=== PATIENT | male | born 1935 | race Caucasian/White ===

== ENCOUNTER → 2016-11-15 | Outpatient (CLI) | payer MEDICARE, BC ==
[~2016-11-15] MED LIST: /ESOM40CA PO; /WARF25TA PO; /WARF5TA PO; ALTA5CAP PO; ASPI81TA83 PO; BACITAB3 PO; BYST2.5T2 PO; BYSTOLIC PO; CILOXAN; CIPR-250 PO; COUM1TAB17 PO; CRES40TA PO; DORZ2SOL5 OU; DULO1CAP3 PO; FINA5TAB2 PO; FLOM5CAP PO; GLUC500T PO; HYDR25TA6 PO; INSUDET SC; METF500T PO; MULTIVIT PO; NEXI40CA PO; PROCTOFOAM; SULF50TA PO; VITA500T3 PO; VITMTA PO
[2016-11-15 14:06] LABS: CREATININE FOR GFR 1.98 MG/DL (0.70-1.30); GLOMERULAR FILTRATION RATE 34.7 (>35); MEAN CORPUSCULAR HEMOGLOBIN 35.2 pg (27.0-33.0); MEAN CORPUSCULAR HGB CONC 33.8 g/dl (32.0-36.5); MEAN CORPUSCULAR VOLUME 104.3 fl (80.0-96.0); RED CELL DISTRIBUTION WIDTH 13.4 % (11.5-14.5); WHITE BLOOD COUNT 4.4 K/mm3 (4.0-10.0)
== END ==
LOC: M SMT 10:55
PROVIDERS: ATTEND Nurse Practitioner Women's Health
DX: N20.0 Calculus of kidney (principal)
CPT/HCPCS: 36415; 80048; 81001; 85027; 87086; G0463

== ENCOUNTER → 2016-11-30 | Outpatient (CLI) | payer MEDICARE, BC ==
--- NOTE | 2016-11-30 12:10 | REP ---
Clinical: Nephrolithiasis. Comparison: 06/17/2016. Findings: Evaluation of the urinary tract system demonstrates mild chronic-appearing symmetric perinephric stranding. The right kidney includes a 7.5 cm posterior mid pole cyst along with 15 mm calculus in the renal pelvis and 10 mm and 2 mm calculi within the lower pole and upper pole calyces. There is no evidence for hydroureteronephrosis and a stable 11 mm calculus in the right kirti pelvis is unchanged compared to prior examination and may reflect adjacent phleboliths or nonobstructing distal ureteral stone (images 107 - 111). The left kidney includes 2.2 cm mid pole cyst and is without nephrolithiasis or hydroureteronephrosis. Liver, spleen, pancreas, and bilateral adrenal glands normal. The patient is status post cholecystectomy. The enteric system demonstrates diffuse diverticulosis without acute diverticulitis. Normal terminal ileum and appendix identified in the right lower quadrant. Bladder and prostate gland are incompletely evaluated due to metallic streak artifact from left hip prosthesis. No ascites. No free air. No significant adenopathy. Atherosclerotic changes of the aorta noted without aneurysm. Musculoskeletal structures demonstrate degenerative changes. Lung bases demonstrate cardiomegaly and chronic fibroatelectatic changes. Impression: 1. Right-sided calculi as described above with possible nonobstructing distal right ureteral stone versus phlebolith unchanged compared to 06/17/2016. Bilateral renal cysts. 2. Diverticulosis without acute diverticulitis. Signed by Orion Amezcua MD 11/30/2016 12:02 P
== END ==
LOC: M RAD 11:09
PROVIDERS: ATTEND Nurse Practitioner Women's Health
DX: N20.0 Calculus of kidney (principal); K57.30 Diverticulosis of large intestine without perforation or abscess without bleeding

== ENCOUNTER → 2017-03-17 | Outpatient (CLI) | payer MEDICARE, BC ==
[~2017-03-17] MED LIST changes: +BACITAB PO; -BACITAB3 PO; -METF500T PO; +METF500T13 PO
[2017-03-17 13:01] LABS: MEAN CORPUSCULAR HGB CONC 33.5 g/dl (32.0-36.5); MEAN CORPUSCULAR VOLUME 98.4 fl (80.0-96.0); WHITE BLOOD COUNT 5.6 K/mm3 (4.0-10.0)
[2017-03-17 14:02] LABS: CALCIUM LEVEL 8.2 MG/DL (8.8-10.2); CREATININE FOR GFR 1.9 MG/DL (0.70-1.30); GLOMERULAR FILTRATION RATE 36.4 (>35); POTASSIUM SERUM 4.5 MEQ/L (3.5-5.1)
== END ==
LOC: M SMT 10:39
PROVIDERS: ATTEND Nurse Practitioner Women's Health
DX: C61 Malignant neoplasm of prostate (principal); N20.0 Calculus of kidney
CPT/HCPCS: 36415; 80048; 81001; 84153; 85027; 87086; G0463